=== PATIENT | female | born 1950 | race Caucasian/White ===

== ENCOUNTER 2017-11-12 17:25 | Emergency (ER) | payer MEDICARE ==
--- OUTSIDE RECORDS SUMMARY | 2017-11-12 17:31 | XMS REPORT ---
:1950 External Reference #:[id number] Author Organization [place] [employer] Address [address] [address] Phone [phone] Care Team Providers Name Role Phone Geremias Short MD Primary Care Physician Unavailable Payers Type Date Identification Numbers Payment Provider Subscriber Health Maintenance Policy Number: Medicare Blue o [facility] (O[facility] [id number] PayID: [id number] [address] [address] [place] [address] Medigap Part B Expires: 07/14/2016 Policy Number: Medicare [facility] [id number] PayID: [id number] [address] [place] [address] Problems Date Description Provider Status Onset: 06/30/2013 Achilles bursitis Abdullahi Dias M.D. 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 Use Drinks 6 Alcoholic Beverages Per Week 6-14/week Smoking Patient is a former smoker quit 1981 Recreational Drug Use Denies Drug Use Daily Caffeine Does Not Consume Caffeine Exercise Type/Frequency Exercises rarely active lifestyle Allergies, Adverse Reactions, Alerts Date Description Reaction Status Severity Comments 06/30/2013 NKDA active Medications Medication Date Status Form Strength Qnty SIG Indications Ordering Provider Coumadin Active Tablets 5mg 90tabs 1 by Sandra 017 mouth x4 Burgos, days a RESEARCH/PROGRAM DIRECTOR week Coumadin Active Tablets 2.5mg take 1 Sandra 017 tablet x Burgos, 3 days RESEARCH/PROGRAM DIRECTOR week Atorvastatin Active Tablets 40mg 90tabs 1 by Sandra Calcium 017 mouth Burgos, every day RESEARCH/PROGRAM DIRECTOR Spironolactone/ Active Tablets 25-25mg 90tabs 1 by Sandra Hydrochlorothia 017 mouth Burgos, zide every day RESEARCH/PROGRAM DIRECTOR Calcium 600 Active Tablets 600mg 30tabs 2 by Sandra 017 mouth Burgos, every day RESEARCH/PROGRAM DIRECTOR Flaxseed Oil Active Capsules 1000mg 2 by Sandra 017 mouth Burgos, every day RESEARCH/PROGRAM DIRECTOR Vitamin C Plus Active Tablets 1000mg 60tabs 2 by Sandra 017 mouth Burgos, every day RESEARCH/PROGRAM DIRECTOR Vitamin D3 Active Tablets 1 daily Sandra Complete 017 Burgos, RESEARCH/PROGRAM DIRECTOR Vitamin B12 Active Tablets ER 1000mcg 30tabs 1 by Sandra 017 mouth Burgos, every day RESEARCH/PROGRAM DIRECTOR Multi Complete Active Capsules 30caps daily Sandra 017 Burgos, RESEARCH/PROGRAM DIRECTOR Celebrex Active Capsules 200mg 180cap take one Sandra 017 s capsule Burgos, twice RESEARCH/PROGRAM DIRECTOR daily Hydrocodone-Gil Active Tablets 5-325mg 90tabs 1 tab by Sandra taminophen 017 mouth Burgos, every 4- RESEARCH/PROGRAM DIRECTOR 6 hours as needed pain Propranolol HCL /0 Active Caps ER 160mg 90caps 1 by Sandra ER 000 24HR mouth Burgos, every day RESEARCH/PROGRAM DIRECTOR Metaxalone Hx Tablets 800mg 30tabs take 1 Sandra 017 - tablet 3 Burgos, times a RESEARCH/PROGRAM DIRECTOR 018 day as needed Propranolol HCL Hx Tablets 40mg 180tab 1 by Sandra 017 - s mouth Burgos, 10/26/2 twice a RESEARCH/PROGRAM DIRECTOR 017 day as needed Vital Signs Date Vital Result Comment 11/08/2017 Height 66 inches 5'6" Weight 240.00 lb Heart Rate 58 /min BP Systolic 120 mmHg BP Diastolic 83 mmHg O2 % BldC Oximetry 98 % BMI (Body Mass Index) 38.7 kg/m2 05/10/2017 Height 66 inches 5'6" Weight 234.12 lb Heart Rate 57 /min BP Systolic 130 mmHg BP Diastolic 72 mmHg Body Temperature 98.3 F O2 % BldC Oximetry 97 % BMI (Body Mass Index) 37.8 kg/m2 Results Test Date Test Result H/L Range Note Protime W/ Inr 10/25/2017 Prothrombin Time 28.3 Inr 2.3 CBC Auto Diff 10/25/2017 White Blood Count 6.5 10^3/uL 3.5-10.8 Red Blood Count 4.55 10^6/uL 4.0-5.4 Hemoglobin 14.0 g/dL 12.0-16.0 Hematocrit 41 % 35-47 Mean Corpuscular Volume 91 fL 80-97 Mean Corpuscular Hemoglobin 31 pg 27-31 Mean Corpuscular HGB Conc 34 g/dL 31-36 Red Cell Distribution Width 13 % 10.5-15 Platelet Count 161 10^3/uL 150-450 Mean Platelet Volume 9.9 um3 7.4-10.4 Abs Neutrophils 4.4 10^3/uL 1.5-7.7 Abs Lymphocytes 1.4 10^3/uL 1.0-4.8 Abs Monocytes 0.6 10^3/uL 0-0.8 Abs Eosinophils 0.1 10^3/uL 0-0.6 Abs Basophils 0 10^3/uL 0-0.2 Abs Nucleated RBC 0 10^3/uL Granulocyte % 67.1 % 38-83 Lymphocyte % 21.5 % Low 25-47 Monocyte % 8.7 % High 0-7 Eosinophil % 2.0 % 0-6 Basophil % 0.7 % 0-2 Nucleated Red Blood Cells % 0 Comp Metabolic Panel 10/25/2017 Sodium 139 mmol/L 139-145 Potassium 4.2 mmol/L 3.5-5.0 Chloride 103 mmol/L 101-111 Co2 Carbon Dioxide 31 mmol/L 22-32 Anion Gap 5 mmol/L 2-11 Glucose 98 mg/dL 70-100 Blood Urea Nitrogen 25 mg/dL High 6-24 Creatinine 1.09 mg/dL High 0.51-0.95 BUN/Creatinine Ratio 22.9 High 8-20 Calcium 9.9 mg/dL 8.6-10.3 Total Protein 7.0 g/dL 6.4-8.9 Albumin 4.2 g/dL 3.2-5.2 Globulin 2.8 g/dL 2-4 Albumin/Globulin Ratio 1.5 1-3 Total Bilirubin 0.60 mg/dL 0.2-1.0 Alkaline Phosphatase 55 U/L 34-104 Alt 15 U/L 7-52 Ast 17 U/L 13-39 Egfr Non- 49.9 >60 Egfr 64.2 >60 1 Lipid Profile (Trig/Chol/HDL) 10/25/2017 Triglycerides 228 mg/dL 2 Cholesterol 177 mg/dL 3 HDL Cholesterol 55.9 mg/dL 4 LDL Cholesterol 76 mg/dL 5 Protime W/ Inr 09/27/2017 Prothrombin Time 32.5 Inr 2.7 Protime W/ Inr 09/06/2017 Prothrombin Time 39.8 Inr 3.3 Protime W/ Inr 08/23/2017 Prothrombin Time 23.5 Inr 1.9 Protime W/ Inr 08/09/2017 Prothrombin Time 35.5 Inr 2.9 Protime W/ Inr 07/26/2017 Prothrombin Time 23.4 Inr 1.9 Protime W/ Inr 07/12/2017 Prothrombin Time 27.5 Inr 2.3 Protime W/ Inr 07/05/2017 Prothrombin Time 18.3 Inr 1.5 Protime W/ Inr 06/06/2017 Prothrombin Time 31.6 Inr 2.6 Protime W/ Inr 05/10/2017 Prothrombin Time 28.5 Inr 2.3 Protime W/ Inr 04/23/2017 Prothrombin Time 32.2 Inr 2.6 Protime W/ Inr 04/09/2017 Prothrombin Time 32.5 Inr 2.7 Protime W/ Inr 03/26/2017 Prothrombin Time 20.9 Inr 1.7 Protime W/ Inr 02/22/2017 Prothrombin Time 29.0 Inr 2.4 Protime W/ Inr 02/08/2017 Prothrombin Time 33.2 Inr 2.7 Protime W/ Inr 01/25/2017 Prothrombin Time 39.8 Inr 3.3 Inr/Protime 01/18/2017 Inr 1.36 High 0.89-1.11 1 Because ethnic data is not always readily available, this report includes an eGFR for both -Americans and non- Americans. The National Kidney Disease Education Program (NKDEP) does not endorse the use of the MDRD equation for patients that are not between the ages of 18 and 70, are , have extremes of body size, muscle mass, or nutritional status, or are non- or non-. According to the National Kidney Foundation, irrespective of diagnosis, the stage of the disease is based on the level of kidney function: Stage Description GFR(mL/min/1.73 m(2)) 1 Kidney damage with normal or decreased GFR 90 2 Kidney damage with mild decrease in GFR 60-89 3 Moderate decrease in GFR 30-59 4 Severe decrease in GFR 15-29 5 Kidney failure <15 (or dialysis) 2 Desirable: <150 Borderline High: 150-199 High: 200-499 Very High: >500 3 Desirable: <200 Borderline High: 200-239 High: >239 4 Low: <40 Desirable: 40-60 High: >60 5 Desirable: <100 Near Optimal: 100-129 Borderline High: 130-159 High: 160-189 Very High: >189 Procedures Date CPT Code Description Status Comment 06/20/2017 Mammogram Completed 06/20/2016 Mammogram Completed 07/03/2014 Colonoscopy Completed Document: 02/01/04 - Colonoscopy Result2013 adenoma - due 201806/16/2014 Colonoscopy Completed 01/03/2012 46122 Rad Exam; Foot Comp Completed 03/06/2011 18515 Rad Exam; Foot Limited Completed 03/06/2011 [id number] Rad Exam; Ankle Comp Completed 02/02/2011 77239 FX Treatment Closed Phalanx Completed Other Than Great Toe W/O Manip 02/01/2004 Colonoscopy Completed Encounters Type Date Location Provider CPT E/M Dx Office Visit 05/10/2017 10:30a [facility] [place] [address] [address] Z79.01 I10 Office Visit 03/15/2012 1:15p [facility] [address]00 726.71 C.M.A. MTiffany Office Visit 01/08/2012 11:15a [facility], 53877 355.6 C.Vasiliy Little. Office Visit 01/03/2012 1:30p [facility], 85779 726.71 C.Vasiliy Little. Office Visit 03/29/2011 9:15a [facility]af[facility], 50158 826.0 C.M.A. RPA-C 726.71 Plan of Care Future Appointment(s):05/14/2018 8:40 am - Starla Maloney M.D. at [facility]11/08/2017 - Sandra Burgos, NPI10 Essential ( primary) hypertensionFollow up:HTN f/u [address] Loving78.5 Hyperlipidemia, unspecifiedComments:Your goal LDL is <130. You are meeting this goal. Your LDL is 76Discussed diet, avoiding trans fats, reducing saturated fats.Continue statin medication, call me if muscle weakness or pain occurs.Follow up:6 months , 20 min, fasting labs priorGoals:Exercising 30 minutes 5 times a week will help raise HDL (good cholesterol) and lower LDL (bad cholesterol.) You need to lose 1-2 pounds per month to move towards a BMI (body mass index) of less than 25.
[2017-11-12 17:32] VITALS: BP 153/69
--- NOTE | 2017-11-12 17:34 | UC ---
Laceration HPI - HPI Summary HPI Summary: Pt presents s/p fall. 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 She stepped into a divet in the ground and fell forward landing on her left knee, left elbow, and left cheek hit a blunt corner of a counter. Did not hit her head or have LOC. She was able to ambulate immediately after and came to . She is on coumadin for Factor 5 and for afib. Denies headache, dizziness, vision changes, SOB, chest pain, abdominal pain, n/v. - History Of Current Complaint Chief Complaint: UCHeadInjury Stated Complaint: FACIAL LACERATION Time Seen by Provider: 11/12/17 17:34 Hx Obtained From: Patient Severity: Mild Pain Intensity: 2 Pain Scale Used: 0-10 Numeric - Allergies/Home Medications Allergies/Adverse Reactions: Allergies Allergy/AdvReac Type Severity Reaction Status Date / Time No Known Allergies Allergy Verified 11/12/17 17:33 PMH/Surg Hx/FS Hx/Imm Hx - Additional Past Medical History Additional PMH: Afib Factor 5 Endocrine History: Dyslipidemia Cardiovascular History: Hypertension - Surgical History Surgical History: Yes Surgery Procedure, Year, and Place: hysterectomy 1981 - Family History Known Family History: Positive: None - Social History Occupation: Retired Lives: Alone Alcohol Use: Weekly Substance Use Type: None Smoking Status (MU): Former Smoker Review of Systems Constitutional: Negative Skin: Bruising - left cheek Eyes: Negative ENT: Negative Respiratory: Negative Cardiovascular: Negative Gastrointestinal: Negative Neurovascular: Negative Musculoskeletal: Negative Neurological: Negative Psychological: Negative All Other Systems Reviewed And Are Negative: Yes Physical Exam - Summary Physical Exam Summary: GENERAL: NAD. WDWN. No pain distress. SKIN: Left maxillary with moderate edema and ecchymosis. Superficial abrasion along left cheek. HEENT: Eyes: PERRLA. EOM intact. Conjunctiva clear without inflammation or discharge. Vision OS/OD/OU 20/25 Ears: Hearing grossly normal. TMs intact no bleeding. Nose: Nasal mucosa pink and moist. TTP left maxillary sinus. NECK: Supple. Nontender. FROM CHEST: CTAB. No r/r/w. No accessory muscle use. Breathing comfortably and in no distress. CV: Pulses intact. Brisk cap refill. ABDOMEN: Soft. NTTP. No distention or guarding. MSK: FROM in B/L UEs and LEs. Mild TTP anterior left knee and left elbow. Strength 5/5 throughout. NEURO: A&Ox3. 3 word recall, remote, recent memory, ability to follow 2-step directions, and attention intact. CN II-XII grossly intact. Dzldko-oj-cnak are intact. Gait with normal base. Romberg: maintains balance, no pronator drift. Normal speech. No facial drooping. PSYCH: Age appropriate behavior. Triage Information Reviewed: Yes Vital Signs: Initial Vital Signs Temp 97.7 F 11/12/17 17:26 Pulse 56 11/12/17 17:26 Resp 18 11/12/17 17:26 BP 153/69 11/12/17 17:26 Pulse Ox 97 11/12/17 17:26 Laceration Course/Dx - Course/Dx Course Of Treatment: CT: IMPRESSION: SOFT TISSUE SWELLING. NO FACIAL FRACTURE. IMPRESSION: NO ACUTE INTRACRANIAL PATHOLOGY. tdap was within the last 4 years. Left elbow contusion. Left knee contusion. Facial abrasion left cheek. Left eye/cheek bruising. Advised to monitor for signs of worsening condition such as headache, dizziness, vision changes, vomiting, or nausea - go to ED if develops. - Differential Dx - Laceration/Wound Provider Diagnoses: Left elbow contusion. Left knee contusion. Facial abrasion left cheek. Left eye/cheek bruising Discharge - Sign-Out/Discharge Documenting (check all that apply): Discharge/Admit/Transfer - Discharge Plan Condition: Stable Disposition: HOME Patient Education Materials: Head Injury (ED) Referrals: Geremias Short MD [Primary Care Provider] - Additional Instructions: If you develop a fever, shortness of breath, chest pain, new or worsening symptoms - please call your PCP or go to the ED. Your blood pressure was high at todays visit. Please see your primary provider within 4 weeks for recheck and re-evaluation. - Billing Disposition and Condition Condition: STABLE Disposition: HOME
[2017-11-12] MEDS ORDERED: HYDROcodone/ACETAMIN 5-325 MG* 1 TAB PO ONE (17:44)
--- NOTE | 2017-11-12 18:30 | RAD ---
HISTORY: Pain, fall, head trauma, anticoagulation COMPARISONS: None TECHNIQUE: Multiple contiguous axial CT scans were obtained of the head without intravenous contrast. FINDINGS: HEMORRHAGE/INFARCT: There is no hemorrhage or acute infarct. MASSES/SHIFT: There is no mass or shift. EXTRA-AXIAL SPACES: There are no extra-axial fluid collections. SULCI AND VENTRICLES: The sulci and ventricles are normal in size and position for the patient's stated age. CEREBRUM: There are no focal parenchymal abnormalities. BRAINSTEM: There are no focal parenchymal abnormalities. CEREBELLUM: There are no focal parenchymal abnormalities. VESSELS: The vessels are grossly normal. PARANASAL SINUSES: The paranasal sinuses are clear. ORBITS: The orbits are unremarkable. BONES AND SOFT TISSUE: No bone or soft tissue abnormalities are noted. OTHER: None IMPRESSION: NO ACUTE INTRACRANIAL PATHOLOGY.
--- NOTE | 2017-11-12 18:32 | RAD ---
HISTORY: Pain, fall, left orbit, maxillary trauma COMPARISONS: None TECHNIQUE: Multiple contiguous axial CT scans were obtained of the face without intravenous contrast, with coronal and sagittal multiplanar reformations. FINDINGS: BONES: There is no displaced fracture or dislocation. The orbital rim is intact. The zygomatic arch is intact. The pterygoid plates are intact. ORBITS: There is minimal left infraorbital prevertebral soft tissue swelling. The globes are round. The optic nerves are symmetric. The extraocular musculature is normal. There is no post septal or intraconal inflammatory change. There is no retrobulbar hematoma. PARANASAL SINUSES: The paranasal sinuses are clear. The nasal septum is deviated to the left. BRAIN AND SOFT TISSUE: There is premaxillary soft tissue swelling on the left. OTHER: None. IMPRESSION: SOFT TISSUE SWELLING. NO FACIAL FRACTURE.
== END 2017-11-12 19:16 | disposition home or self-care (01) ==
LOC: UCEAST 17:25
DX: S50.02XA Contusion of left elbow, initial encounter (principal); S80.02XA Contusion of left knee, initial encounter; S00.83XA Contusion of other part of head, initial encounter; S00.81XA Abrasion of other part of head, initial encounter; W18.09XA Striking against other object with subsequent fall, initial encounter; Y93.H2 Activity, gardening and landscaping; Y92.9 Unspecified place or not applicable; I48.91 Unspecified atrial fibrillation; Z79.01 Long term (current) use of anticoagulants; D68.51 Activated protein C resistance; E78.5 Hyperlipidemia, unspecified; I10 Essential (primary) hypertension; Z87.891 Personal history of nicotine dependence
CPT/HCPCS: 70450; 70486; 99212; G0463

== ENCOUNTER 2017-11-13 16:46 | Emergency (ER) | payer MEDICARE ==
--- NOTE | 2017-11-13 17:26 | RAD ---
HISTORY: Subacute trauma, and trabeculation COMPARISONS: November 12, 2017 TECHNIQUE: Multiple contiguous axial CT scans were obtained of the head without intravenous contrast. FINDINGS: HEMORRHAGE/INFARCT: There is no hemorrhage or acute infarct. MASSES/SHIFT: There is no mass or shift. EXTRA-AXIAL SPACES: There are no extra-axial fluid collections. SULCI AND VENTRICLES: The sulci and ventricles are normal in size and position for the patient's stated age. CEREBRUM: There are no focal parenchymal abnormalities. BRAINSTEM: There are no focal parenchymal abnormalities. CEREBELLUM: There are no focal parenchymal abnormalities. VESSELS: The vessels are grossly normal. PARANASAL SINUSES: The paranasal sinuses are clear. ORBITS: The orbits are unremarkable. BONES AND SOFT TISSUE: There is preorbital soft tissue swelling of the left OTHER: None IMPRESSION: NO ACUTE INTRACRANIAL PATHOLOGY.
--- NOTE | 2017-11-13 17:32 | RAD ---
HISTORY: Subacute trauma, dizziness COMPARISONS: None TECHNIQUE: Multiple contiguous axial CT scans were obtained of the cervical spine without intravenous contrast, with coronal and sagittal multiplanar reformations. FINDINGS: BRAIN: The visualized brain is unremarkable CENTRAL CANAL: Evaluation of the central canal is limited on CT technique; however, there is no obvious canalicular mass or epidural hemorrhage. ALIGNMENT: There is straightening of the cervical lordosis. There is a mild scoliotic curvature of the spine. VERTEBRAL BODIES: There is multilevel anterolateral marginal osteophyte formation. There is no displaced fracture. JOINTS: There is mild diffuse vertebral and facet osteoarthritis, most pronounced at C2-C3 and C7-T1. MUSCULATURE: Unremarkable INTERVERTEBRAL DISCS: There is diffuse loss of intervertebral disc height. AXIAL IMAGES: C2-C3: There is no osseous neural foraminal narrowing or central canal stenosis. C3-C4: There is no osseous neural foraminal narrowing or central canal stenosis. C4-C5: There is no osseous neural foraminal narrowing or central canal stenosis. C5-C6: There is no osseous neural foraminal narrowing or central canal stenosis. C6-C7: There is no osseous neural foraminal narrowing or central canal stenosis. C7-T1: There is no osseous neural foraminal narrowing or central canal stenosis. SOFT TISSUES: The visualized soft tissues of the neck are unremarkable. The prevertebral fat stripe is preserved. OTHER: None. IMPRESSION: DEGENERATIVE DISC DISEASE AND OSTEOARTHRITIS. NO ACUTE OSSEOUS INJURY TO THE CERVICAL SPINE
--- NOTE | 2017-11-13 17:35 | RAD ---
HISTORY: Fall, facial pain, dizziness, subacute trauma COMPARISONS: November 12, 2017 TECHNIQUE: Multiple contiguous axial CT scans were obtained of the face without intravenous contrast, with coronal and sagittal multiplanar reformations. FINDINGS: BONES: There is no displaced fracture or dislocation. The orbital rim is intact. The zygomatic arch is intact. The pterygoid plates are intact. ORBITS: The globes are round. The optic nerves are symmetric. The extraocular musculature is normal. There is no post septal or intraconal inflammatory change. There is no retrobulbar hematoma. PARANASAL SINUSES: The paranasal sinuses are clear. The nasal septum is deviated to the left. BRAIN AND SOFT TISSUE: There is left premaxillary soft tissue swelling and left preorbital soft tissue swelling. There has been interval development of a subcutaneous hematoma with a fluid-fluid level within the left premaxillary soft tissue measuring 3.9 x 2 x 2.4 cm in size. OTHER: None. IMPRESSION: NO FACIAL FRACTURE. THERE IS PERSISTENT LEFT FACIAL AND PREORBITAL SOFT TISSUE SWELLING WITH INTERVAL DEVELOPMENT OF A LEFT PREMAXILLARY HEMATOMA MEASURING UP TO 3.9 CM IN SIZE.
--- NOTE | 2017-11-13 18:13 | ED ---
Dashawn Wing Stephanie, scribed for Floyd Kay MD on 11/13/17 at 1754 . Complex/Multi-Sys Presentation - HPI Summary HPI Summary: The pt is a 67 y/o F presenting to the ED with c/o facial pain that began yesterday at 16:30 s/p fall. Symptoms include dizziness. The pt states she slipped on water and hit her face on a stainless steel cabinet. She reports hitting her L knee and L elbow. The pt states she hit her face so hard she did not immediately feel pain. She reports bleeding s/p accident. The pt put icepacks on her face immediately after accident. The pt is on Coumadin. Pt reports INR of 2.3. - History Of Current Complaint Chief Complaint: EDFacialInjury Time Seen by Provider: 11/13/17 17:39 Hx Obtained From: Patient Onset/Duration: Sudden Onset, Lasting Days - 1, Still Present Timing: Constant Severity Currently: Moderate Location: Pain At: - face - Allergies/Home Medications Allergies/Adverse Reactions: Allergies Allergy/AdvReac Type Severity Reaction Status Date / Time No Known Allergies Allergy Verified 11/12/17 17:33 PMH/Surg Hx/FS Hx/Imm Hx Endocrine/Hematology History: Denies: Hx Diabetes, Hx Thyroid Disease Cardiovascular History: Denies: Hx Hypertension Respiratory History: Denies: Hx Asthma, Hx Chronic Obstructive Pulmonary Disease (COPD) GI History: Denies: Hx Ulcer EENT History: Denies: Hx Deafness - Surgical History Surgery Procedure, Year, and Place: hysterectomy 1981 Infectious Disease History: No Infectious Disease History: Denies: Hx Hepatitis, Hx Human Immunodeficiency Virus (HIV), Traveled Outside the [place] in Last 30 Days - Family History Known Family History: Negative: Renal Disease - Social History Occupation: Retired Lives: With Family Alcohol Use: Weekly Hx Substance Use: No Substance Use Type: Reports: None Hx Tobacco Use: Yes Smoking Status (MU): Former Smoker Review of Systems Negative: Fever Positive: Other - bruising and eccymosis over L side of face. Neurological: Other - dizziness Negative: Slurred Speech All Other Systems Reviewed And Are Negative: Yes Physical Exam - Summary Physical Exam Summary: Appearance: Well appearing, no pain distress Skin: warm, dry, ecchymosis on L knee, Large hematoma on buccal surface of check on the L and on maxillary sinus area on the L. Head/face: normal Eyes: EOMI, MJ, soaked conjunctival hemorrhage on L lateral conjunctiva ENT: normal, No hemotympany Neck: supple, non-tender Respiratory: CTA, breath sounds present Cardiovascular: RRR, pulses symmetrical Abdomen: non-tender, soft Bowel Sounds: present Musculoskeletal: normal, strength/ROM intact Neuro: normal, sensory motor intact, A&Ox3 Triage Information Reviewed: Yes Vital Signs On Initial Exam: Initial Vitals Temp Pulse Resp BP Pulse Ox 96.7 F 50 14 146/70 97 11/13/17 17:06 11/13/17 17:06 11/13/17 17:06 11/13/17 17:06 11/13/17 17:06 Vital Signs Reviewed: Yes Diagnostics - Vital Signs Vital Signs Temp Pulse Resp BP Pulse Ox 11/13/17 17:06 96.7 F 50 14 146/70 97 - Laboratory Lab Statement: Any lab studies that have been ordered have been reviewed, and results considered in the medical decision making process. - CT Brain CT Interpretation: No Acute Changes CT Interpretation Completed By: Radiologist - NO ACUTE INTRACRANIAL PATHOLOGY. ED physician has reviewed this report. Cervical Spine CT Interpretation: No Acute Changes CT Interpretation Completed By: Radiologist - DEGENERATIVE DISC DISEASE AND OSTEOARTHRITIS. NO ACUTE OSSEOUS INJURY TO THE CERVICAL SPINE. ED physician has reviewed this report. Maxillofacial CT Interpretation: No Acute Changes CT Interpretation Completed By: Radiologist - NO FACIAL FRACTURE. THERE IS PERSISTENT LEFT FACIAL AND PREORBITAL SOFT TISSUE SWELLING WITH INTERVAL DEVELOPMENT OF A LEFT PREMAXILLARY HEMATOMA MEASURING UP TO 3.9 CM IN SIZE. ED physician has reviewed this report. Complex Multi-Symp Course/Dx Course Of Treatment: Patient was significant facial injury after blunt force trauma while on Coumadin. INR today at her family doctor was 2.34. She is on this for factor V Leiden deficiency. Head and neck CTs are negative. Her maxillofacial CT shows large maxillary or periorbital area hematoma. The eye itself has normal vision with small subconjunctival hemorrhage laterally. There is no hyphema. Pain in the eye or pain with extraocular movement. Treatment is symptomatic with warm compresses to the area. Follow-up with primary care physician. - Diagnoses Differential Diagnoses/HQI/PQRI: Other - Facial fracture, entrapment of extraocular muscles, hyphema or traumatic iritis, simple hematoma Provider Diagnoses: Facial hematoma, Adverse effect of anticoagulant, Subconjunctival hemorrhage, Knee contusion Discharge - Sign-Out/Discharge Documenting (check all that apply): Discharge/Admit/Transfer - discharge - Discharge Plan Condition: Good Disposition: HOME Patient Education Materials: Hematoma (ED) Referrals: Geremias Short MD [Medical Doctor] - Additional Instructions: Warm compresses to the area. Do not drive. Use wheeled walker to maneuver around her house. Maintain INR around 2.0 if possible. Discussed with gold leaf laborer about converting to a newer blood thinner. Return if worse, off balance, new injury, worse or other concerns as discussed. - Billing Disposition and Condition Condition: STABLE Disposition: HOME The documentation as recorded by the Dashawn mackenzie Stephanie accurately reflects the service I personally performed and the decisions made by , Floyd Kay MD.
[2017-11-13 18:30] VITALS: BP 148/77
== END 2017-11-13 18:30 | disposition home or self-care (01) ==
LOC: ED 16:46
DX: S00.03XA Contusion of scalp, initial encounter (principal); S80.02XA Contusion of left knee, initial encounter; W01.0XXA Fall on same level from slipping, tripping and stumbling without subsequent striking against object, initial encounter; Y92.9 Unspecified place or not applicable; Z87.891 Personal history of nicotine dependence; Z79.01 Long term (current) use of anticoagulants
CPT/HCPCS: 70450; 70486; 72125; 99282